=== PATIENT | female | born 1945 ===

== ENCOUNTER 2022-04-20 05:29 | Emergency (ER) | payer MEDICARE, MEDICAID, SELFPAY ==
[2022-04-20 05:27] VITALS: BP 118/88; PULSE 97; RESP 16; TEMP 36.8; O2SAT 97
--- NOTE | 2022-04-20 05:30 | DI.CT_ITS ---
Exam(s) CT HEAD WO EXAM: CT HEAD WO CLINICAL HISTORY: fall from bed, head lac on AC. TECHNIQUE: Imaging Protocol: Axial computed tomography images with coronal and sagittal reformatted images were created and reviewed COMPARISON: No exams were available for comparison FINDINGS: There are no skull fractures. There is no fluid in the visualized paranasal sinuses. There is no evidence of intracranial hemorrhage, mass effect, or shift of midline structures. There are no extra-axial fluid collections. The ventricles are not enlarged or shifted and there is no blo od within the ventricular system nor within the basal cisterns. There is mild bilateral periventricular hypodensity consistent with chronic small vessel disease. No obvious acute territorial infarct IMPRESSION: No acute intracranial findings on this noninfused CT scan of the brain. RADIATION DOSE DELIVERED: 809.35mGy.cm Total DLP DATA REPOSITORY: All CT scans at this facility are submitted to the National Radiology Data Registry (NRDR) Dose Index Registry (DIR) with the [employer] ([employer]). RADIATION OPTIMIZATION: All CT scans at this facility use at least one of these dose optimization te chniques: automated exposure control; mA and/or kV adjustment per patient size (includes targeted exa ms where dose is matched to clinical indication); or iterative reconstruction.
--- NOTE | 2022-04-20 05:30 | DI.RAD_ITS ---
Exam(s) XR PELVIS AP EXAM: XR PELVIS AP CLINICAL HISTORY: fall from bed. TECHNIQUE: 2D digital imaging was performed. COMPARISON: No exams were available for comparison FINDINGS: Single AP view of the pelvis. There is a right hip prosthesis. The inferior aspect of the femoral stem is not included in the fiel d of view of this image but the remainder of the prosthesis and adjacent bones appears unremarkable. No fracture of the opposite-left hip. Mild degenerative changes in the left hip. Pelvic bones unre markable. SI joints unremarkable. IMPRESSION: No evidence of obvious pelvic nor hip fracture. Right hip prosthesis noted. DATA REPOSITORY: RADIATION DOSE DELIVERED:
--- NOTE | 2022-04-20 05:33 | ED.GENADUL_ITS ---
Discharge Plan Disposition Patient Disposition: Home Condition: Improving Discharge Details Chief Complaint: Trauma Clinical Impression: Laceration of scalp Primary Care Provider: Unknown,Unknown ED Provider: Bruno Gray Home Meds and New Rx's Prescriptions: No Action montelukast 10 mg tablet 10 mg PO QHS Qty: 90 8RF acetaminophen [Acetaminophen Extra Strength] 500 mg tablet 1,000 mg PO BID PRN albuterol sulfate 90 mcg/actuation HFA aerosol inhaler 2 puff inhalation 6XD brimonidine 0.2 % drops 1 drp ophthalmic (eye) BID carbidopa-levodopa 25-100 mg tablet 2 tab PO TID diclofenac sodium 1 % gel 2 g topical QID Rx Instructions: apply to single elbow, wrist or hand; for hand includes palm/fingers/back of hand gabapentin 300 mg capsule 600 mg PO DAILY Rx Instructions: 2 caps in am and noon 3 caps bedtime hydroxychloroquine 200 mg tablet 200 mg PO BID lorazepam 0.5 mg tablet 0.5 mg PO QHS PRN melatonin 10 mg capsule 10 mg PO HS PRN Narcan 4 mg/actuation spray,non-aerosol 4 mg intranasal Q3M PRN Rx Instructions: spray 1 dose into ONE nostril; alternate nostrils w each dose until help arrives omeprazole 40 mg capsule,delayed release(DR/EC) 40 mg PO BID sertraline 100 mg tablet 100 mg PO DAILY travoprost 0.004 % drops 1 drp ophthalmic (eye) QPM Spiriva Respimat 2.5 mcg/actuation mist 2 puff inhalation DAILY Qty: 12 3RF budesonide-formoterol [Symbicort] 160-4.5 mcg/actuation HFA aerosol inhaler 2 puff inhalation BID Qty: 30.6 3RF Discharge Instructions Instructions: Head Laceration (ED) Additional Instructions: Please follow-up with primary care physician. Please return to the emergency department for any worsening symptoms. Medical Decision Making 76-year-old female on Eliquis presents after mechanical fall out of bed this morning, hit her head sustaining 1 cm laceration to frontal scalp hemostatic, underlying hematoma, no other injuries or complaints, no loss of consciousness. Patient is alert and interactive, following commands, GCS 15, moving all extremities without deformity, old appearing ecchymosis to anterior shins bilaterally. Likely simple contusion with laceration lower suspicion for skull fracture or intracranial hemorrhage however given age and anticoagulated state will obtain CT head also obtain x-ray pelvis given age and fall. Disposition pending reassessment and imaging results 6: 33 wound cleaned and explored, superficial laceration stellate in nature not gaping with underlying hematoma, easily opposed with surgical glue and Steri- Strips. CT head unremarkable for intracranial hemorrhage or skull fracture. Patient alert interactive hemodynamically stable. Will be discharged back to care facility. HPI General Date/Time Provider Initiated Documentation: 04/20/22 05:31 . HPI Narrative: 76-year-old female, fall from bed this morning, patient presents with laceration to frontal scalp. No loss of consciousness. No other injuries. Wound hemostatic, pressure dressing applied by EMS. Related Data Home Medications Medication Instructions Recorded Confirmed acetaminophen 500 mg tablet 1,000 mg PO BID PRN 02/09/21 03/25/21 (Acetaminophen Extra Strength) albuterol sulfate 90 mcg/actuation 2 puff inhalation 6XD 02/09/21 03/25/21 aerosol inhaler brimonidine 0.2 % eye drops 1 drp ophthalmic (eye) BID 02/09/21 03/25/21 carbidopa 25 mg-levodopa 100 mg 2 tab PO TID 02/09/21 03/25/21 tablet diclofenac sodium 1 % topical gel 2 g topical QID 02/09/21 03/25/21 gabapentin 300 mg capsule 600 mg PO DAILY 02/09/21 03/25/21 hydroxychloroquine 200 mg tablet 200 mg PO BID 02/09/21 03/25/21 lorazepam 0.5 mg tablet 0.5 mg PO QHS PRN 02/09/21 melatonin 10 mg capsule 10 mg PO HS PRN 02/09/21 03/25/21 naloxone 4 mg/actuation nasal 4 mg intranasal Q3M PRN 02/09/21 03/25/21 spray (Narcan) omeprazole 40 mg capsule,delayed 40 mg PO BID 02/09/21 03/25/21 release sertraline 100 mg tablet 100 mg PO DAILY 02/09/21 03/25/21 travoprost 0.004 % eye drops 1 drp ophthalmic (eye) QPM 02/09/21 03/25/21 montelukast 10 mg tablet 10 mg PO QHS #90 tabs 03/25/21 03/25/21 tiotropium bromide 2.5 2 puff inhalation DAILY #12 grams 09/16/21 mcg/actuation mist for inhalation (Spiriva Respimat) Symbicort 160 mcg-4.5 2 puff inhalation BID #30.6 grams 12/21/21 mcg/actuation HFA aerosol inhaler (budesonide-formoterol) Previous Rx's Medication Instructions Recorded montelukast 10 mg tablet 10 mg PO QHS #90 tabs 03/25/21 tiotropium bromide 2.5 2 puff inhalation DAILY #12 grams 09/16/21 mcg/actuation mist for inhalation (Spiriva Respimat) Symbicort 160 mcg-4.5 2 puff inhalation BID #30.6 grams 12/21/21 mcg/actuation HFA aerosol inhaler (budesonide-formoterol) Allergies Allergy/AdvReac Type Severity Reaction Status Date / Time phenylbutazone AdvReac Severe Verified 02/09/21 14:16 [From Butazolidin] ciprofloxacin [From Cipro] AdvReac Verified 02/09/21 14:16 metronidazole [From Flagyl] AdvReac Verified 02/09/21 14:16 oxyphenbutazone AdvReac Verified 02/09/21 14:16 Penicillins AdvReac Verified 02/09/21 14:16 phenylbutazone AdvReac Uncoded 02/09/21 14:16 tandearil AdvReac Uncoded 02/09/21 14:16 Review of Systems Narrative: Review of Systems Constitutional: negative Eyes: negative ENT: negative Cardiovascular: negative Respiratory: negative Gastrointestinal: negative : negative Musculoskeletal: negative Skin: Frontal scalp laceration Neurologic: negative Psych: negative PFSH All Active Problems (Updated 04/20/22 @ 06:34 by Bruno Gray MD) Laceration of scalp (Acute) Pulmonary nodule (Acute) Asthma-COPD overlap syndrome (Acute) Osteoarthritis of right hip (Acute) Carpal tunnel syndrome, bilateral (Acute) Left sided sciatica (Acute) Hemorrhage of rectum and anus (Acute) Closed fracture of one rib (Acute) Thyroid function test abnormal (Acute) Increased frequency of urination (Acute) Snoring (Acute) Lumbosacral radiculopathy (Acute) Lower back pain (Acute) Cervical radiculopathy (Acute) Neck pain (Acute) Glaucoma (Chronic) Migraine (Chronic) Restless legs syndrome (Acute) Obstructive sleep apnea syndrome in adult (Acute) Atypical depressive disorder (Acute) Iron deficiency anemia (Acute) Obesity (Chronic) Hyperlipidemia (Acute) Vitamin D deficiency (Acute) Medical History (Updated 04/20/22 @ 06:34 by Bruno Gray MD) Asthma Crohn's disease s/p ileostomy H/O flexible sigmoidoscopy 03/30/2018 Systemic lupus erythematosus Surgical History (Updated 02/09/21 @ 15:14 by Yojana Moran) H/O lumpectomy 03/28/1969 - x2 right breast History of adenoidectomy History of appendectomy History of carpal tunnel surgery 08/29/2014 right History of cataract surgery 05/26/2016left, 07/13/2016 right History of cholecystectomy 03/28/2012 History of colonoscopy History of hysterectomy 03/28/1969 History of ileostomy creation of ileostomy 03/06/2013 History of tonsillectomy History of tubal ligation 03/28/1972 Family History (Updated 02/09/21 @ 15:01 by Yojana Moran) Sister Mental disorder Mother Cancer breast cancer Father Hypertension Cerebral arterial aneurysm Daughter Mental disorder Diabetes Social History (Updated 02/09/21 @ 15:02 by Yojana Moran) Smoking/Tobacco Use Status: Former Tobacco Use Smoking risk assessment performed?: Yes Alcohol Intake: never Drug use: Never Substance use type: does not use Do you feel safe at home: Yes Do you feel safe in your relationship?: Yes Additional Social history: (notes:smoked from 1957 to 2009) Exam Narrative Exam Narrative: Physical Examination General: alert, awake, cooperative, resting comfortably, no acute distress HEENT: normocephalic, frontal scalp laceration; PERRL, EOM intact, conjunctiva normal; no nasal discharge; moist mucous membranes, oral and pharyngeal mucosa normal, tolerating secretions Neck: supple, trachea midline; full ROM Chest: normal to inspection Respiratory: normal respiratory effort, speaking in full sentences, clear to auscultation, no wheezing, rales or rhonchi Cardiac: regular rate, regular rhythm, S1S2 intact, no murmurs rubs or gallops GI: abdomen soft, non-tender, non-distended; no palpable mass or hepatosplenomegaly Skin: 1 cm superficial laceration frontal scalp, hemostatic, underlying hematoma Neuro: AAOx3, normal speech, moving all extremities with 5 and 5 strength upper and lower extremities; Extremities: Old ecchymosis to anterior shins bilaterally Psych: Appropriate mood and affect
--- NOTE | 2022-04-20 06:14 | DI.VRAD_ITS ---
PROCEDURE INFORMATION: Exam: CT Head Without Contrast Exam date and time: 04/20/2022 6:01 AM Age: 76 years old Clinical indication: Injury or trauma; Laceration; Consciousness not specified; Without residual foreign body; Forehead; Injury date: 04/20/21; Injury details: Fall from bed, head lac on ac TECHNIQUE: Imaging protocol: Computed tomography of the head without contrast. Radiation optimization: All CT scans at this facility use at least one of these dose optimization techniques: automated exposure control; mA and/or kV adjustment per patient size (includes targeted exams where dose is matched to clinical indication); or iterative reconstruction. COMPARISON: No relevant prior studies available. FINDINGS: Brain: Mild involutional changes of the brain parenchyma. Mild low attenuation in the periventricular white matter. This is a nonspecific finding most commonly seen in setting of microvascular ischemic change. No evidence of acute infarct. No intraparenchymal hemorrhage. No midline shift or mass effect. No extra-axial fluid collections or hemorrhage. Cerebral ventricles: No ventriculomegaly. Paranasal sinuses: Visualized sinuses are unremarkable. No fluid levels. Mastoid air cells: Visualized mastoid air cells are well aerated. Bones/joints: Unremarkable. No acute fracture. Soft tissues: Mild soft tissue swelling and laceration suggested in the frontal region. Other findings: No radiopaque foreign body. IMPRESSION: No evidence of acute intracranial abnormality. Dictated and Authenticated by: Joanna Izquierdo MD. Ordering:YING Carr MD
--- NOTE | 2022-04-20 06:19 | NUR.NOTE ---
Nursing Note: MEGAN from Rehab (across the street). Staff stated the pt fell on the floor hitting her head. the pt has a laceration to her forehead, pressure dressing was applied by EMS. PT has a small .5x.5cm laceration, +blood thinners. The pt arrived with an indwelling Mat[place] which is draining cloudy urine. The pt is able to answers appropriately, denies any LOC, but cannot give a cause of her fall. Pt able to move all extremities and no other trauma noted to her body. wound cleaned and occlusive dressing applied until further eval by
--- NOTE | 2022-04-20 06:49 | DI.VRAD_ITS ---
PROCEDURE INFORMATION: Exam: XR Pelvis Exam date and time: 04/20/2022 6:24 AM Age: 76 years old Clinical indication: Injury or trauma; Blunt trauma (contusions or hematomas); Does not apply; Pelvic region; Injury date: 05/21/21; Injury details: Fall from bed; Prior surgery; Surgery date: 6+ months; Surgery type: R hip TECHNIQUE: Imaging protocol: Radiologic exam of the pelvis. Views: 1 or 2 view. COMPARISON: CR XR PELVIS AP 04/20/2022 6:14 AM FINDINGS: Limitations: Decreased sensitivity for detection of osseous abnormalities due to demineralization of the osseous structures. The lateral aspect of the right greater trochanter is not well assessed due to suboptimal technique. Tubes, catheters and devices: Surgical clips project over the right hemipelvis. Bones/joints: Right hip arthroplasty is noted. Imaged portions of the hardware intact and in satisfactory position, without evidence of loosening. [id number]-[id number] narrowing of the left hip joint, with associated spurring of the femoral head and acetabulum. No acute or suspicious osseous abnormalities. Soft tissues: Unremarkable. IMPRESSION: 1. No evidence of acute fracture. 2. [id number] osteoarthritis of the left hip joint. Dictated and Authenticated by: Joanan Izquierdo MD. Ordering:YING Carr MD
== END 2022-04-20 07:16 | disposition home or self-care (01) ==
PROVIDERS: Emergency Provider Emergency Medicine
DX: S01.01XA Laceration without foreign body of scalp, initial encounter (principal); S80.11XA Contusion of right lower leg, initial encounter; S80.12XA Contusion of left lower leg, initial encounter; J45.909 Unspecified asthma, uncomplicated; Z79.51 Long term (current) use of inhaled steroids; Z23 Encounter for immunization; W10.9XXA Fall (on) (from) unspecified stairs and steps, initial encounter; W22.8XXA Striking against or struck by other objects, initial encounter
CPT/HCPCS: 90471; 99284; 70450; 72170; 99282

== ENCOUNTER → 2022-05-26 12:52 | Outpatient (BNVA) | payer MEDICARE, MEDICAID, SELFPAY | PROVIDERS: Visit Provider Surgery | DX: L89.156 Pressure-induced deep tissue damage of sacral region (principal) ==